=== PATIENT | female | born 2000 | race Caucasian/White ===

== ENCOUNTER 2020-05-15 21:35 | Emergency (ER) | payer BC ==
[2020-05-15 21:40] VITALS: TEMP 98
[2020-05-15] MEDS ORDERED: ACETAMINOPHEN TAB 500 MG TAB PO STA (22:01)
[2020-05-15] MEDS ORDERED: IBUPROFEN 600 MG TAB PO STA (22:02)
--- NOTE | 2020-05-15 22:23 | XR ---
EXAMINATION TYPE: XR knee complete LT DATE OF EXAM: 05/15/2020 COMPARISON: NONE HISTORY: Knee pain TECHNIQUE: 3 views FINDINGS: I see no fracture nor dislocation. Joint spaces are normal. There is no sign of knee joint effusion. There are no pathologic calcifications. IMPRESSION: Negative left knee exam.
--- NOTE | 2020-05-15 22:36 | ED ---
Lower Extremity Injury HPI - General Chief Complaint: Extremity Injury, Lower Stated Complaint: LT knee injury Time Seen by Provider: 05/15/20 21:43 Source: patient Mode of arrival: wheelchair Limitations: no limitations - History of Present Illness Initial Comments: 19-year-old female presents to emergency with a complaint of left knee injury. This occurred about one hour prior to arrival. Patient states she was stepping to the left side when she felt her "knee dislocated". Patient reports her patella moved to the left side but was able to "snap back". reports limited range of motion with knee flexion but she can keep it at full extension. Pain alleviated with full extension. Denies any numbness or tingling. Denies erythema or swelling. Denies taking medication to alleviate the symptoms. - Related Data Home Medications Medication Instructions Recorded Confirmed Apple Cider Vinegar Gummies 500 mg PO BID 05/15/20 05/15/20 Allergies Allergy/AdvReac Type Severity Reaction Status Date / Time No Known Allergies Allergy Verified 05/15/20 21:50 Review of Systems ROS Statement: Those systems with pertinent positive or pertinent negative responses have been documented in the HPI. ROS Other: All systems not noted in ROS Statement are negative. Past Medical History Past Medical History: No Reported History History of Any Multi-Drug Resistant Organisms: None Reported Past Surgical History: No Surgical Hx Reported Past Psychological History: No Psychological Hx Reported Smoking Status: Never smoker Past Alcohol Use History: Occasional Past Drug Use History: Marijuana General Exam Limitations: no limitations General appearance: alert, in no apparent distress Head exam: Present: atraumatic, normocephalic, normal inspection Eye exam: Present: normal appearance, PERRL, EOMI Pupils: Present: normal accommodation ENT exam: Present: normal exam, normal oropharynx, mucous membranes moist Neck exam: Present: normal inspection, full ROM. Absent: tenderness Respiratory exam: Present: normal lung sounds bilaterally. Absent: respiratory distress Cardiovascular Exam: Present: regular rate, normal rhythm, normal heart sounds Extremities exam: Present: normal inspection, tenderness (Lateral left knee tenderness. No ecchymosis or erythema), normal capillary refill, other (Palpable DP and PT bilaterally. Sensation intact in bilateral lower extremities). Absent: full ROM (Limited range of motion the left knee with flexion), pedal edema, joint swelling, calf tenderness Back exam: Present: normal inspection, full ROM. Absent: tenderness Neurological exam: Present: alert, oriented X3 Psychiatric exam: Present: normal affect, normal mood Skin exam: Present: warm, dry, intact, normal color Course Vital Signs 05/15/20 21:36 Temperature 98.0 F Pulse Rate 83 Respiratory 16 Rate Blood Pressure 104/68 O2 Sat by Pulse 98 Oximetry Medical Decision Making - Medical Decision Making 19-year-old female presents to emergency Department with chief complaint of left knee injury. On physical examination, limited range of motion with knee flexion. X-rays unremarkable. Knee immobilizer applied. Patient was given Tylenol and Motrin per request. She will follow up with global marketing specialist. Case discussed with Disposition Clinical Impression: Left knee injury, Left knee pain Disposition: HOME SELF-CARE Condition: Stable Instructions (If sedation given, give patient instructions): Knee Sprain (ED) Additional Instructions: Follow-up with global marketing specialist. Return to emergency department if symptoms worsen. Alternate between Tylenol and Motrin for pain control. Is patient prescribed a controlled substance at d/c from ED?: No Referrals: Angeles Denny MD [Primary Care Provider] - 1-2 days Mao Del Toro MD [STAFF PHYSICIAN] - 1-2 days Time of Disposition: 22:40
[2020-05-15 23:15] VITALS: BP 133/80; PULSE 82; RESP 18
== END 2020-05-15 23:15 | disposition home or self-care (01) ==
LOC: EC 21:35
DX: S89.92XA Unspecified injury of left lower leg, initial encounter (principal); F12.90 Cannabis use, unspecified, uncomplicated; W01.0XXA Fall on same level from slipping, tripping and stumbling without subsequent striking against object, initial encounter
CPT/HCPCS: 99283

== ENCOUNTER 2021-03-03 16:24 | Emergency (ER) | payer BC ==
[2021-03-03 18:30] LABS: Appearance,Urine Clear (Clear); Bilirubin,Urine Negative (Negative); Blood,Urine Moderate (Negative); Color,Urine Light Yellow; Glucose,Urine (UA) Negative (Negative); Ketones,Urine Negative (Negative); Leukocyte Esterase,Urine Negative (Negative); Nitrite,Urine Negative (Negative); PH, Urine 6.5 (5.0-8.0); Protein,Urine Negative (Negative); RBC,Urine <1 /hpf (0-5); Specific Gravity,Urine 1.006 (1.001-1.035); Squamous Epithelial Cell,Urine <1 /hpf (0-4); Urobilinogen,Urine <2.0 mg/dL (<2.0); WBC,Urine 1 /hpf (0-5)
--- NOTE | 2021-03-03 19:00 | ED ---
General Adult HPI - General Chief complaint: Vaginal Bleeding Stated complaint: Poss miscarriage Time Seen by Provider: 03/03/21 16:55 Source: patient Mode of arrival: ambulatory Limitations: no limitations - History of Present Illness Initial comments: Melissa huff is a 20-year-old previously healthy female presents emergency Department with reported cough and congestion as well as vaginal bleeding. Patient is not taking any medications [id number] for her cough. She has had a runny nose. Cough is nonproductive. Denies any sick contacts with similar symptoms. She is not Covid vaccinated. She denies fevers. No chest pain or shortness of breath. She also reports that she started to have some vaginal bleeding today for which she thought she passed "tissue" she is on control but is sexually active. Denies history of previous . Reports that last menstrual cycle was abnormal for her however this is common for her to not have normal menstrual cycles. She is not concern for sexually transmitted infections. Did not take a test at home. Denies any changes in her urination to include dysuria, hematuria or difficulty voiding. Denies any changes in her bowel habits. No other alleviating, precipitating or modifying factors - Related Data Home Medications Medication Instructions Recorded Confirmed Atomoxetine HCl [Strattera] 40 mg PO DIRECTED 03/03/21 03/03/21 [place] 0.1-20 Mg-Mcg 1 tab PO DAILY 03/03/21 03/03/21 Allergies Allergy/AdvReac Type Severity Reaction Status Date / Time No Known Allergies Allergy Verified 03/03/21 16:59 Review of Systems ROS Statement: Those systems with pertinent positive or pertinent negative responses have been documented in the HPI. ROS Other: All systems not noted in ROS Statement are negative. Past Medical History Past Medical History: No Reported History History of Any Multi-Drug Resistant Organisms: None Reported Past Surgical History: No Surgical Hx Reported Past Psychological History: No Psychological Hx Reported Smoking Status: Never smoker Past Alcohol Use History: Occasional Past Drug Use History: Marijuana General Exam Limitations: no limitations Course Vital Signs 03/03/21 03/03/21 16:52 19:22 Temperature 97.8 F 98.1 F Pulse Rate 101 H 77 Respiratory 20 16 Rate Blood Pressure 139/83 127/69 O2 Sat by Pulse 99 98 Oximetry Medical Decision Making - Medical Decision Making Upon arrival patient was placed into room 3. Thorough history and physical exam was performed. Patient does not recall of it and is negative. Lung sounds are clear patient has no increased work of breathing. Patient does provide a urine sample which is negative for . Does demonstrate moderate blood. I did request to do a pelvic exam however the patient is refusing. I informed the patient that she needs to follow-up with her primary care doctor or [employer] for pelvic exam. Patient understood this. She may take Sudafed, Benadryl or any [id number] cough medicine for her symptoms. Return to the emergency room for any new or worsening symptoms. Patient agreed to treatment plan and was discharged home in stable condition - Lab Data Lab Results 03/03/21 03/03/21 03/03/21 Range/Units 17:01 18:12 18:12 Urine Color Light Yellow Urine Appearance Clear (Clear) Urine pH 6.5 (5.0-8.0) Ur Specific [place] 1.006 (1.001-1.035) Urine Protein Negative (Negative) Urine Glucose (UA) Negative (Negative) Urine Ketones Negative (Negative) Urine Blood Moderate H (Negative) Urine Nitrite Negative (Negative) Urine Bilirubin Negative (Negative) Urine Urobilinogen <2.0 (<2.0) mg/dL Ur Leukocyte Esterase Negative (Negative) Urine RBC <1 (0-5) /hpf Urine WBC 1 (0-5) /hpf Ur Squamous Epith Cells <1 (0-4) /hpf Urine HCG, Qual Not Detected (Not Detectd) Coronavirus (PCR) Not Detected (Not Detectd) Disposition Clinical Impression: Dysfunctional uterine bleeding, Cough Disposition: HOME SELF-CARE Condition: Stable Instructions (If sedation given, give patient instructions): Dysmenorrhea (ED) Additional Instructions: Please follow-up with your primary care doctor. Return to the emergency room for any new or worsening symptoms Is patient prescribed a controlled substance at d/c from ED?: No Referrals: Nonstaff,Physician [Primary Care Provider] - 1-2 days Time of Disposition: 19:00
[2021-03-03 19:23] VITALS: BP 127/69; PULSE 77; RESP 16; TEMP 98.1
== END 2021-03-03 19:22 | disposition home or self-care (01) ==
LOC: EC 16:24
DX: N93.8 Other specified abnormal uterine and vaginal bleeding (principal); R05.9 Cough, unspecified; F12.90 Cannabis use, unspecified, uncomplicated; Z72.89 Other problems related to lifestyle
CPT/HCPCS: 81001; 81025; 87635